=== PATIENT | female | born 2000 | race Caucasian/White ===

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

== ENCOUNTER 2024-06-23 14:41 | Emergency (ER) | payer SELFPAY ==
[~2024-06-23] VITALS: Ht 165.1 cm; Wt 56.8 kg
[2024-06-23 14:48] VITALS: TEMP 98.2
[2024-06-23] MEDS ORDERED: Lidocaine 2% (20 MG/ML) 20 ML UROJET RC ONE (17:15)
[2024-06-23] MEDS ORDERED: ANUSOL-HC SUPPO25 MG RC (17:57)
[2024-06-23 18:04] VITALS: BP 103/61; PULSE 62
== END 2024-06-23 18:04 | disposition home or self-care (01) ==
LOC: COL.ER 14:41
DX: K64.4 Residual hemorrhoidal skin tags (principal)